=== PATIENT | male | born 1975 | race Caucasian/White ===

== ENCOUNTER 2023-01-18 21:19 | Emergency (ER) | payer BC ==
[~2023-01-18] VITALS: Ht 177.8 cm; Wt 95.3 kg
[2023-01-18 21:25] VITALS: BP 143/91
--- NOTE | 2023-01-18 21:25 | NUR ---
PT OFFLOADED TO [facility]
[2023-01-18] MEDS ORDERED: KETOROLAC 60 MG/2 ML VIAL IM ONE (23:00)
--- NOTE | 2023-01-19 01:26 | NUR ---
Patient being evaluated by physician
[2023-01-19] MEDS ORDERED: NAPR-54 PO (01:28)
--- NOTE | 2023-01-19 01:35 | NUR ---
PT CLEARED FOR D/C BY DR. SEGURA. ALL D/C INSTRUCTIONS VERBALIZED TO PT BY DR. SEGURA. RX OF NITHYA GIVEN
== END 2023-01-19 01:35 | disposition home or self-care (01) ==
LOC: MED 21:19
DX: R51.9 Headache, unspecified (principal); F19.10 Other psychoactive substance abuse, uncomplicated; F10.20 Alcohol dependence, uncomplicated; F31.9 Bipolar disorder, unspecified; Z79.1 Long term (current) use of non-steroidal anti-inflammatories (NSAID); Y90.9 Presence of alcohol in blood, level not specified
CPT/HCPCS: 96372; 99283; J1885